=== PATIENT | male | born 1945 | race Caucasian/White ===

== ENCOUNTER 2020-03-04 17:47 | Inpatient (IN) | payer MEDICARE, OTHER ==
[~2020-03-04] VITALS: Ht 152.4 cm; Wt 65.9 kg
--- NOTE | 2020-03-04 17:47 | NUR ---
BIBRA 61 FROM HOME C/O GEN WEAKNESS STARTED THIS MORNING, BS 123. TO ER BED 9, HOOKED TO MONITOR, CHANGED TO HOSP GOWN, WARM BLANKET PROVIDED, PATIENT AAO x 1, BREATHING EVEN AND UNLABORED. KEPT SAFE AND COMFORTABLE. AWAITING MD LARSEN
--- NOTE | 2020-03-04 17:52 | NUR ---
DR LIND AT BEDSIDE
[2020-03-04 18:10] LABS: BASOPHILS # (AUTO) 0.2 /CMM (0.0-0.2); BASOPHILS % (AUTO) 2.2 % (0.0-2.0); EOSINOPHILS % (AUTO) 0.8 % (0.0-6.0); HEMATOCRIT 38 % (39-51); HEMOGLOBIN 12.9 g/dL (13.5-17.5); LYMPHOCYTES # (AUTO) 1.7 /CMM (0.8-4.8); LYMPHOCYTES % (AUTO) 17.4 % (20.0-44.0); MEAN CORPUSCULAR HGB CONC 34 g/dl (31.0-36.0); MEAN CORPUSCULAR VOLUME 98 fL (80-96); MONOCYTES # (AUTO) 0.7 /CMM (0.1-1.30); MONOCYTES % (AUTO) 7.6 % (2.0-12.0); PLATELET COUNT (AUTO) 75 /CMM (150-450); RED BLOOD CELL COUNT(AUTO) 3.92 MIL/uL (4.5-6.0); WHITE BLOOD COUNT (AUTO) 9.7 K/uL (4.3-11.0)
--- NOTE | 2020-03-04 18:23 | NUR ---
PATIENT WHEELED OUT VIA GURNEY FOR CT SCAN
[2020-03-04 18:25] LABS: CALCIUM, SERUM 8.9 mg/dL (8.5-10.1); CARBON DIOXIDE 25 mmol/L (21-32); CHLORIDE 96 mmol/L (98-107); CREATININE 0.9 mg/dL (0.6-1.3); GLUCOSE 109 mg/dL (74-106); POTASSIUM 3.6 mmol/L (3.5-5.1); SODIUM SERUM 133 mmol/L (136-145); UREA NITROGEN, BLOOD 15 mg/dL (7-18)
[2020-03-04 18:46] LABS: ALANINE AMINOTRANSFERASE 75 U/L (12-78); ALBUMIN 3.2 g/dL (3.4-5.0); ALKALINE PHOSPHATASE 77 U/L (46-116); ASPARTATE AMINOTRANSFERASE 99 U/L (15-37); BILIRUBIN,DIRECT 0.6 mg/dL (0.0-0.2); BILIRUBIN,TOTAL 1.4 mg/dL (0.2-1.0); TOTAL PROTEIN, SERUM 7.1 g/dL (6.4-8.2)
--- NOTE | 2020-03-04 19:05 | NUR ---
RAPID COVID SWAB DONE AND SENT TO LAB
--- NOTE | 2020-03-04 19:11 | NUR ---
MOVE PACKET TURNED IN.
[2020-03-04] MEDS ORDERED: OMEP40CA13 PO (19:12)
[2020-03-04] MEDS ORDERED: LEVO75TA7 PO (19:12)
[2020-03-04] MEDS ORDERED: ALPR2TAB7 PO (19:12)
[2020-03-04] MEDS ORDERED: TAMS-12 PO (19:12)
[2020-03-04] MEDS ORDERED: CHOL10002 PO (19:12)
[2020-03-04] MEDS ORDERED: IVAB5TAB PO (19:12)
[2020-03-04] MEDS ORDERED: SERT100T12 PO (19:12)
[2020-03-04] MEDS ORDERED: DONE10TA44 PO (19:12)
[2020-03-04] MEDS ORDERED: ATOR40TA PO (19:12)
[2020-03-04] MEDS ORDERED: METO25TA4 PO (19:12)
[2020-03-04] MEDS ORDERED: ICOS1CAP PO (19:12)
[2020-03-04] MEDS ORDERED: MONT10TA22 PO (19:12)
[2020-03-04] MEDS ORDERED: DEXL60CA3 PO (19:12)
[2020-03-04] MEDS ORDERED: FURO20TA4 PO (19:12)
[2020-03-04] MEDS ORDERED: SACU1TAB PO (19:12)
[2020-03-04] MEDS ORDERED: CALC500T52 PO (19:12)
--- NOTE | 2020-03-04 19:12 | NUR ---
URINE SAMPLE COLLECTED VIA STRAIGHT CATHETER, SAMPLE SENT TO LAB
[2020-03-04] MEDS ORDERED: POTASSIUM CHLORIDE 20 MEQ TAB.PRT.SR PO ONE ×2 (19:18→19:30)
[2020-03-04] MEDS ORDERED: FUROSEMIDE 40 MG/4 ML VIAL ONE (19:18)
[2020-03-04 19:20] LABS: BILIRUBIN,URINE MODERATE (NEGATIVE); BLOOD, URINE Large Ery/uL (NEGATIVE); COLOR,URINE Pink (YELLOW); LEUKOCYTE ESTERASE ,URINE Negative (NEGATIVE); NITRITE, URINE Positive (NEGATIVE); PROTEIN,URINE 100 mg/dl (NEGATIVE); UGLUCOSE Negative (NEGATIVE)
--- NOTE | 2020-03-04 19:25 | NUR ---
ENDORSEMENT GIVEN TO JOSI PERKINS FOR GREGORIO
[2020-03-04] MEDS ORDERED: FUROSEMIDE 40 MG/4 ML VIAL IV ONE (19:30)
[2020-03-04 19:40] LABS: BAND % (MANUAL) 1 % (0.0-5.0); EOSINOPHILS % (MANUAL) 1 % (0-4); LYMPHOCYTES % (MANUAL) 29 % (16-48); MONOCYTES % (MANUAL) 2 % (0-11.0); NEUTROPHILS % (MANUAL) 67 (42-76)
--- NOTE | 2020-03-04 20:01 | NUR ---
CALL FROM LAB, RAPID COVID NEGATIVE.
--- NOTE | 2020-03-04 20:05 | NUR ---
BED ASSIGNMENT: 309-1
[2020-03-04 20:09] LABS: RBC,URINE 21-50 /HPF (0-2)
[2020-03-04 20:10] LABS: BACTERIA,URINE 1+ /HPF (None Seen); SQUAMOUS EPITHELIAL CELL,UR Many /HPF (None Seen)
--- NOTE | 2020-03-04 20:18 | NUR ---
TRIED TO CALL FOR REPORT, NURSE IS BUSY RIGHT NOW, WILL CALL ME BACK.
--- NOTE | 2020-03-04 20:30 | NUR ---
REPORT GIVEN TO MICHAEL PERKINS FOR GREGORIO.
[2020-03-04 21:00] VITALS: BP 130/70
[2020-03-04] MEDS ORDERED: MAGNESIUM HYDROXIDE 30 ML UDC PO PRN (21:00)
[2020-03-04] MEDS ORDERED: HYDROCODONE/APAP 5/325MG TABLET PO PRN (21:00)
[2020-03-04] MEDS ORDERED: ONDANSETRON HCL/PF 4 MG/2 ML VIAL IVP PRN (21:00)
[2020-03-04] MEDS ORDERED: MAG HYDROX/AL HYDROX/SIMETH 30 ML UDC PO PRN (21:00)
[2020-03-04] MEDS ORDERED: Z GUARD REMEDY 2 OZ OINT TP PRN (21:00)
[2020-03-04] MEDS ORDERED: ACETAMINOPHEN 325 MG TABLET PO PRN (21:00)
[2020-03-04] MEDS ORDERED: ZOLPIDEM TARTRATE 5 MG TABLET PO PRN (21:00)
[2020-03-04 21:30] VITALS: BP 130/70
--- NOTE | 2020-03-04 21:30 | NUR ---
associate professor of church music initial notes admit a pt from ER via tamara accompanied by ER nurse and tech. DX of CHF . pt is awake , confused Finnish speaking only. No signs of any distress noted. Pt unable to give information so i decided to called his family and spoke to his and his daughter as power plant installer and provide some information about the patient. Per daughter pt able to ambulate but because he has diarrhea and N/V yesterday he started getting weak and confused that the time they decide to call 911.Tried to re-orient the patient where he at. Sinus Rhythm on tele monitor. Assessment done and recorded. . kept him warm and comfortable at all times. bed alarm set and bed in low and lock in position side rails x2 up and place call light at reach. will continue monitoring .
[2020-03-05] VITALS: BP_SYST 118; BP_SYST 142; BP_DIAS 53; BP_DIAS 90
[2020-03-05 04:00] VITALS: BP 128/81
[2020-03-05 06:05] LABS: BASOPHILS % (AUTO) 0.3 % (0.0-2.0); EOSINOPHILS % (AUTO) 0.3 % (0.0-6.0); HEMATOCRIT 37 % (39-51); HEMOGLOBIN 12.5 g/dL (13.5-17.5); LYMPHOCYTES # (AUTO) 1.5 /CMM (0.8-4.8); LYMPHOCYTES % (AUTO) 19.4 % (20.0-44.0); MEAN CORPUSCULAR HGB CONC 33 g/dl (31.0-36.0); MEAN CORPUSCULAR VOLUME 97 fL (80-96); MONOCYTES # (AUTO) 0.6 /CMM (0.1-1.30); MONOCYTES % (AUTO) 7.7 % (2.0-12.0); NEUTROPHILS # (AUTO) 5.8 /CMM (1.8-8.9); NEUTROPHILS % (AUTO) 72.3 % (43.0-81.0); PLATELET COUNT (AUTO) 68 /CMM (150-450); RED BLOOD CELL COUNT(AUTO) 3.84 MIL/uL (4.5-6.0)
[2020-03-05 06:17] LABS: CALCIUM, SERUM 8.2 mg/dL (8.5-10.1); CREATININE 0.7 mg/dL (0.6-1.3); MAGNESIUM 1.4 mg/dL (1.8-2.4); PHOSPHORUS 2.7 mg/dL (2.5-4.9); POTASSIUM 3.4 mmol/L (3.5-5.1)
--- NOTE | 2020-03-05 07:17 | NUR ---
tele frame straightener closing notes pt awake at this time. needs re-orientation where he at because he's forgetful where he at . stable throughout the night. tele SR heart rate 84 per monitor. vital sigsn within normal limit. kept him warm and comfortable at all times. bed in low and lock in position with side rails x2 up. will endors e to am nurse for continuity of care.
--- NOTE | 2020-03-05 07:37 | NUR ---
CHEMICAL OPERATIONS SPECIALIST OPENING NOTES RECEIVED PATIENT IN BED, AWAKE, A/O X1. PATIENT ON ROOM AIR RIGHT NOW BUT HAS A NASAL CANULA NEAR HIM WITH 2 LPM OF O2; PATIENT KEEPS REMOVING IT. BREATHING IS EVEN AND UNLABORED AT THIS TIME. TELE MONITOR WITH A SINUS RHYTHM 88 BPM. NO COMPLAINS OF PAIN. IV ACCESS ON LFA G #20 AND HL ON L WRIST. SAFETY PRECAUTIONS IN PLACE; BED IN LOW POSITION AND LOCKED, RAILS UPX2, CALL LIGHT WITHIN REACH. WILL CONTINUE TO MONITOR PATIENT.
[2020-03-05 08:00] VITALS: BP 125/61
[2020-03-05] MEDS ORDERED: POTASSIUM CHLORIDE 20 MEQ TAB.PRT.SR PO ONE (08:00)
[2020-03-05] MEDS: Magnesium 1GM/D5W 100ML PREMIX 100 ML IV SCH ×4 (08:42→11:29)
[2020-03-05] MEDS ORDERED: FUROSEMIDE 40 MG/4 ML VIAL IV SCH (09:00)
[2020-03-05 12:00] VITALS: BP 122/78
[2020-03-05] MEDS ORDERED: AZIT500T2 PO (13:45)
[2020-03-05] MEDS ORDERED: LEVO137T24 PO (13:45)
[2020-03-05] MEDS ORDERED: CEPH500C2 PO (13:45)
[2020-03-05] MEDS ORDERED: FURO-144 PO (13:46)
[2020-03-05 16:00] VITALS: BP 130/67
[2020-03-05] MEDS ORDERED: CEPHALEXIN MONOHYDRATE 500 MG CAPSULE PO SCH (17:00)
--- NOTE | 2020-03-05 17:28 | NUR ---
DIVISION OFFICER WEAPONS DEPARTMENTRECORDER OF DEEDS NOTES PATIENT DISCHARGED HOME WITH HOME HEALTH IN MEDICALLY STABLE CONDITION. PATIENT A/O X2 AND UNDERSTANDS HE IS BEING DISCHARGED HOME. VITAL SIGNS WITHIN NORMAL LIMITS. ALL DOCUMENTATION READY AND SIGNED BY PATIENT. DISCHARGE INSTRUCTIONS PROVIDED TO THE FAMILY ( DAUGHTER SHERRY) WHO HAS BEEN CONTACTED. VALUABLES PICKED UP AT THE SAFE AND VALUABLE FORM SIGNED BY THE PATIENT. IV ACCESS WAS REMOVED BEFORE PATIENT LEFT THE FLOOR. PATIENT WAS PICKED UP BY 2 wagon drill operator AND LEFT THE UNIT AT [id number].
== END 2020-03-05 17:30 | disposition home health service (06) | DRG 291 ==
LOC: ER 18:16 → TELE 20:10
PROVIDERS: ADMIT Student in an Organized Health Care Education/Training Program; ATTEND Registered Nurse
DX: I11.0 Hypertensive heart disease with heart failure (principal); J15.9 Unspecified bacterial pneumonia; J96.10 Chronic respiratory failure, unspecified whether with hypoxia or hypercapnia; N39.0 Urinary tract infection, site not specified; E87.1 Hypo-osmolality and hyponatremia; E44.1 Mild protein-calorie malnutrition; I50.43 Acute on chronic combined systolic (congestive) and diastolic (congestive) heart failure; Z79.899 Other long term (current) drug therapy; Z79.890 Hormone replacement therapy; B96.89 Other specified bacterial agents as the cause of diseases classified elsewhere; Z99.81 Dependence on supplemental oxygen; D64.9 Anemia, unspecified; D69.6 Thrombocytopenia, unspecified; R74.01 Elevation of levels of liver transaminase levels; E03.9 Hypothyroidism, unspecified; E83.42 Hypomagnesemia; I25.10 Atherosclerotic heart disease of native coronary artery without angina pectoris; E66.9 Obesity, unspecified; Z68.28 Body mass index [BMI] 28.0-28.9, adult; Z95.1 Presence of aortocoronary bypass graft; I25.2 Old myocardial infarction; Z95.810 Presence of automatic (implantable) cardiac defibrillator; I34.0 Nonrheumatic mitral (valve) insufficiency; F17.200 Nicotine dependence, unspecified, uncomplicated
CPT/HCPCS: 36415; 70450-TC; 71045-TC; 80048-TC; 80061-TC; 80076-TC; 81001; 83735-TC; 83880; 84100-TC; 84439-TC; 84443-TC; 84484-TC; 85025-TC; 85730-TC; 87081-TC; 87086-TC; 93307-TC; C9803; G0378; J1940; J3475